=== PATIENT | male | born 1945 | race Two or more races ===

== ENCOUNTER 2019-03-18 11:33 | Inpatient (IN) | payer OTHER ==
[~2019-03-18] VITALS: Ht 167.6 cm; Wt 68.9 kg
[~2019-03-18 11:33] MED LIST: NO SE ACUERDA
[2019-03-24] MEDS ORDERED: [UNRECOGNIZED DRUG - OTHER] PO (14:34)
[2019-03-24] MEDS ORDERED: LIPITOR40 M1 PO (14:34)
[2019-03-24] MEDS ORDERED: HYDRALAZINE HCL25 MG PO (14:35)
[2019-03-24] MEDS ORDERED: VALSARTAN-HCTZ1 EAC4 PO (14:35)
[2019-03-24] MEDS ORDERED: NIFEDIPINE ER90 M1 PO (14:35)
[2019-03-24] MEDS ORDERED: TAMS0.4C PO (14:36)
[2019-03-24] MEDS ORDERED: ISORBIDE PO (14:36)
[2019-03-29] MEDS ORDERED: CARVEDILOL25 M1 PO (10:21)
[2019-03-29] MEDS ORDERED: ISOSORBIDE MONO60 M2 PO (10:21)
== END 2019-04-21 20:03 | disposition home or self-care (01) | DRG 330 ==
LOC: SURG-SUITE 11:33 → O/R 03-29 07:00 → SURH 03-29 07:00 → SURG-SUITE 03-29 07:00 → SURH 03-29 16:32 → ICU 04-01 22:30 → SURH 04-15 22:18
PROVIDERS: ADMIT Colon & Rectal Surgery
PROC: 07BC4ZX Excision of Pelvis Lymphatic, Percutaneous Endoscopic Approach, Diagnostic (ICD-10-PCS; 2019-03-29)
PROC: 0DBU4ZZ Excision of Omentum, Percutaneous Endoscopic Approach (ICD-10-PCS; 2019-03-29)
PROC: 4A12X4Z Monitoring of Cardiac Electrical Activity, External Approach (ICD-10-PCS; 2019-03-29)
PROC: 4A033R1 Measurement of Arterial Saturation, Peripheral, Percutaneous Approach (ICD-10-PCS; 2019-03-29)
PROC: 0DTF4ZZ Resection of Right Large Intestine, Percutaneous Endoscopic Approach (ICD-10-PCS; principal; 2019-03-29 07:00)
PROC: 3E0F7GC Introduction of Other Therapeutic Substance into Respiratory Tract, Via Natural or Artificial Opening (ICD-10-PCS; 2019-03-31)
PROC: 02HV33Z Insertion of Infusion Device into Superior Vena Cava, Percutaneous Approach (ICD-10-PCS; 2019-04-01)
PROC: 0D9670Z Drainage of Stomach with Drainage Device, Via Natural or Artificial Opening (ICD-10-PCS; 2019-04-02)
PROC: 3E0G76Z Introduction of Nutritional Substance into Upper GI, Via Natural or Artificial Opening (ICD-10-PCS; 2019-04-02)
PROC: 5A1D70Z Performance of Urinary Filtration, Intermittent, Less than 6 Hours Per Day (ICD-10-PCS; 2019-04-02)
DX: D12.2 Benign neoplasm of ascending colon (principal); N17.9 Acute kidney failure, unspecified; N18.4 Chronic kidney disease, stage 4 (severe); J98.11 Atelectasis; K91.89 Other postprocedural complications and disorders of digestive system; K56.7 Ileus, unspecified; I12.9 Hypertensive chronic kidney disease with stage 1 through stage 4 chronic kidney disease, or unspecified chronic kidney disease; R09.02 Hypoxemia; E87.6 Hypokalemia; G47.33 Obstructive sleep apnea (adult) (pediatric); D58.0 Hereditary spherocytosis; B96.1 Klebsiella pneumoniae [K. pneumoniae] as the cause of diseases classified elsewhere

== ENCOUNTER 2019-03-28 07:10 | Day surgery (SDC) | payer OTHER ==
[~2019-03-28 07:10] MED LIST changes: +HYDRALAZINE HCL25 MG PO; +ISORBIDE PO; +LIPITOR40 M1 PO; +NIFEDIPINE ER90 M1 PO; +TAMS0.4C PO; +VALSARTAN-HCTZ1 EAC4 PO; +[UNRECOGNIZED DRUG - OTHER] PO
[2019-03-29] MEDS ORDERED: CARVEDILOL25 M1 PO (10:21)
[2019-03-29] MEDS ORDERED: ISOSORBIDE MONO60 M2 PO (10:21)
== END 2019-03-28 11:50 | disposition home or self-care (01) ==
LOC: CIR.AMB 07:10
DX: D12.3 Benign neoplasm of transverse colon (principal); Z86.010 Personal history of colon polyps; K64.1 Second degree hemorrhoids

== ENCOUNTER → 2019-07-07 13:39 | Outpatient (CLI) | payer OTHER ==
[~2019-07-07 13:39] MED LIST changes: +CARVEDILOL25 M1 PO; +ISOSORBIDE MONO60 M2 PO
== END | disposition home or self-care (01) ==
LOC: LAB 13:39
DX: R97.20 Elevated prostate specific antigen [PSA] (principal); B96.1 Klebsiella pneumoniae [K. pneumoniae] as the cause of diseases classified elsewhere

== ENCOUNTER 2019-07-22 07:09 | Outpatient (CLI) | payer OTHER | END 2019-07-22 07:14 | disposition home or self-care (01) | LOC: SONOGRAMA 07:09 | PROVIDERS: ATTEND Urology | DX: R97.20 Elevated prostate specific antigen [PSA] (principal) ==

== ENCOUNTER 2020-06-27 08:10 | Outpatient (CLI) | payer OTHER | END 2020-06-27 08:17 | disposition home or self-care (01) | LOC: SONOGRAMA 08:10 → MAMO-SONO 09:15 | PROVIDERS: ATTEND Urology | DX: C61 Malignant neoplasm of prostate (principal) ==

== ENCOUNTER 2020-09-21 06:40 | Day surgery (SDC) | payer OTHER | END 2020-09-21 10:35 | disposition home or self-care (01) | LOC: AMB-ENDOS 06:40 | PROVIDERS: ATTEND Colon & Rectal Surgery | DX: D12.4 Benign neoplasm of descending colon (principal); K64.2 Third degree hemorrhoids; Z20.822 Contact with and (suspected) exposure to COVID-19 ==